=== PATIENT | male | born 1970 | race Caucasian/White ===

== ENCOUNTER → 2017-05-05 | Outpatient (CLI) | payer BC ==
--- NOTE | 2017-05-05 13:10 | EST ---
EXERCISE STRESS DATE OF SERVICE: 05/05/2017 AGE: 46 SEX: Male HT: 5'6" WT: 234 pounds PROTOCOL: Albino STAGE: II DURATION OF EXERCISE: 6:05 HEART RATE REST: 94 BLOOD PRESSURE REST: 148/70 MAXIMUM HEART RATE ACHIEVED: 147 MAXIMUM BLOOD PRESSURE: 218/68 85% MPHR: 149 100% MPHR: 175 METS: 7.3 INDICATIONS: Pulmonary hypertension. CLINICAL INFORMATION: History of pulmonary hypertension. Baseline heart rate 94 beats per minute. Baseline blood pressure 148/70 mmHg. Baseline 12-lead ECG shows sinus rhythm with frequent PACs in a bigeminal pattern. T-wave inversions in the inferior leads and V6. Patient exercised on a Albino protocol for 6 minutes 5 seconds. Peak heart rate 147 beats per minute. Mildly hypertensive response to exercise. He was short of breath within 6 minutes of exercise. There was no definite ECG evidence for ischemia. No sustained or nonsustained arrhythmias noted. IMPRESSION: 1. Shortness of breath with exercise, low exercise capacity. 2. Atrial bigeminy on baseline 12-lead ECG. 3. No exercise-induced arrhythmias. 4. No ECG evidence for ischemia. MMODL / IJN: [id number] /
== END | disposition home or self-care (01) ==
LOC: RADNMMAIN 10:32
PROVIDERS: ATTEND Internal Medicine
DX: I27.0 Primary pulmonary hypertension (principal); Z88.0 Allergy status to penicillin; Z91.09 Other allergy status, other than to drugs and biological substances
CPT/HCPCS: 93017